=== PATIENT | female | born 1950 | race Two or more races ===

== ENCOUNTER 2020-02-15 09:01 | Day surgery (SDC) | payer MEDICARE, OTHER ==
[~2020-02-15] VITALS: Ht 170.2 cm; Wt 57.6 kg
[2020-02-15] VITALS (11 sets, daily range): BP systolic 87–124; BP diastolic 42–67
--- NOTE | 2020-02-15 09:22 | Anethesia Preoperative Eval ---
Anesthesia Pre-op PMH/ROS General Date of Evaluation: Feb 15, 2020 Time of Evaluation: 09:48 Anesthesiologist: faith ASA Score: ASA 2 Mallampati Score Class I : Soft palate, uvula, fauces, pillars visible Class II: Soft palate, uvula, fauces visible Class III: Soft palate, base of uvula visible Class IV: Only hard plate visible Mallampati Classification: Class II Surgeon: brendon Diagnosis: heme positive stool Surgical Procedure: colonoscopy Anesthesia History: none Social History: smoking - nonsmoker Family History: no anesthesia problems Allergies: Coded Allergies: No Known Allergies (Unverified , 02/15/20) Medications: see eMAR Patient NPO?: Yes Past Medical History Gastrointestinal/Genitourinary: Reports: other - heme positive stool HEENT: Reports: other - decreased visual acuity Anesthesia Pre-op Phys. Exam Physician Exam Last Vital Signs Date Time Temp Pulse Resp B/P (MAP) Pulse Ox O2 Delivery O2 Flow Rate FiO2 02/15/20 09:43 Room Air 02/15/20 09:37 97.9 63 18 105/56 99 Constitutional: NAD Neurologic: CN 2-12 intact Cardiovascular: RRR Respiratory: CTA Gastrointestinal: S/NT/ND Airway Exam Mallampati Score: Class II MO: limited Neck: flexible TMD: 2fb ROM: limited Anesthesia Pre-op A/P Risk Assessment & Plan Assessment: asa2 Plan: mac Status Change Before Surgery: No Pre-Antibiotics Drug: Carla Sarmiento MD Feb 15, 2020 09:22
[2020-02-15] MEDS ORDERED: LR 1000ml 1,000 ML IVLG SCH (09:48)
[2020-02-15] MEDS ORDERED: Atropine Inj 1mg/10ml Syr IV PRN (10:00)
[2020-02-15] MEDS ORDERED: DiphenhydrAMINE 50mg/ml Inj IVP PRN (10:00)
[2020-02-15] MEDS ORDERED: Midazolam 2mg/2ml Inj IVP PRN (10:00)
[2020-02-15] MEDS ORDERED: fentaNYL 100 mcg/2 mL IV PRN (10:00)
[2020-02-15] MEDS ORDERED: LR 1000ml ONE (11:00)
[2020-02-15] MEDS ORDERED: Propofol 200mg/20ml IV ONE (11:00)
[2020-02-15] MEDS ORDERED: Lidocaine 1% MPF 10mg/ml 5ml ONE (11:00)
--- NOTE | 2020-02-15 11:10 | Short Stay Surgery H&P ---
History of Present Illness History of Present Illness Chief Complaint see H&P HPI Ruby Winston is a 69 year old female who was admitted on for Blood In Stool Patient History Allergies: Coded Allergies: No Known Allergies (Unverified , 02/15/20) Medication History No Active Prescriptions or Reported Meds Physical Exam Vital Signs Last Vital Signs Date Time Temp Pulse Resp B/P (MAP) Pulse Ox O2 Delivery O2 Flow Rate FiO2 02/15/20 09:43 Room Air 02/15/20 09:37 97.9 63 18 105/56 99 Plan Attestation Are the patient's medical conditions optimized for surgery? Tanvi Hamilton MD Feb 15, 2020 11:10
--- NOTE | 2020-02-15 11:11 | Pre-Procedure Note/Attestation ---
Pre-Procedure Note/Attestation Complete Prior to Procedure Planned Procedure: not applicable Procedure Narrative: colon Indications for Procedure Pre-Operative Diagnosis: ob+ stools Attestation I attest that I discussed the nature of the procedure; its benefits; risks and complications; and alternatives (and the risks and benefits of such alternatives ), prior to the procedure, with the patient (or the patient's legal corporate representative). I attest that, if there was a reasonable possibility of needing a blood transfusion, the patient (or the patient's legal corporate representative) was given the [facility] standardized written summary, pursuant to the [place] Blood Safety Act ([place] Health and Safety Code # 1645, as amended). I attest that I re-evaluated the patient just prior to the surgery and that there has been no change in the patient's H&P, except as documented below: Tanvi Hamilton MD Feb 15, 2020 11:11
--- NOTE | 2020-02-15 12:24 | Immediate Post-Op Evaluation ---
Immediate Post-Op Evalulation Immediate Post-Op Evalulation Procedure: colonoscopy w/bx Date of Evaluation: Feb 15, 2020 Time of Evaluation: 12:16 IV Fluids: 1050ml lr Blood Products: none Estimated Blood Loss: negligible Blood Pressure Systolic: 92 Blood Pressure Diastolic: 46 Pulse Rate: 61 Respiratory Rate: 18 O2 Sat by Pulse Oximetry: 99 Temperature (Fahrenheit): 98.4 Pain Score (1-10): 0 Nausea: No Vomiting: No Complications none Patient Status: awake, reacts, patent Hydration Status: adequate Drug: Carla Sarmiento MD Feb 15, 2020 12:24
--- NOTE | 2020-02-15 12:25 | 48 Hour Post Anesthesia Eval ---
Post Anesthesia Evaluation Procedure: colonoscopy w/bx Date of Evaluation: Feb 15, 2020 Time of Evaluation: 12:18 Blood Pressure Systolic: 90 0: 44 Pulse Rate: 60 Respiratory Rate: 18 Temperature (Fahrenheit): 98.4 O2 Sat by Pulse Oximetry: 99 Airway: patent Nausea: No Vomiting: No Pain Intensity: 0 Hydration Status: adequate Cardiopulmonary Status: stable Mental Status/LOC: patient returned to baseline Post-Anesthesia Complications: none Follow-up care needed: N/A Carla Angulo MD Feb 15, 2020 12:25
--- NOTE | 2020-02-16 12:29 | Endoscopy Procedure Note ---
Endoscopy Procedure Note General Indication for Procedure: Heme (+) Procedures Performed: colonoscopy Operative Findings/Diagnosis: see dictation Pt Tolerated Procedure Well: Yes Estimated Blood Loss: none Anesthesia Anesthesiologist: Billy Stephen Anesthesia: MAC Medications Medication Given: see anesthesia record Inserted Devices Implant(s) used?: No GI Core Measures 50 yrs or older w/o bx or poly: Not Applicable 10yrs. F/U recommended: Not Applicable If not recommended, why?: Tanvi Hamilton MD Feb 16, 2020 12:29
--- NOTE | 2020-02-16 12:30 | Brief Operative Note ---
Immediate Post Operative Note Operative Note Chief Complaint: OB + Pre-op Diagnosis: ob+ stools Procedure: colon Post-op Diagnosis: see dictation Surgeon: brendon Anesthesia: moderate sedation Specimen: yes Complications: none Condition: stable Fluids: per record Implant(s) used?: No Tanvi Hamilton MD Feb 16, 2020 12:30
--- NOTE | 2020-02-17 00:15 | Operative Note - Dictated ---
GASTROENTEROLOGY PROCEDURE REPORT PROCEDURE: Colonoscopy with submucosal injection with hot snare polypectomy. SURGEON: Tanvi Hamilton MD ANESTHESIA: Please see the separate anesthesiologist notes for details. PRE-ENDOSCOPIC DIAGNOSIS: Heme-positive stools. POST-ENDOSCOPIC DIAGNOSES: 1. Normal terminal ileum for about 5 to 10 cm. 2. Occasional diverticulosis. 3. Diminutive polyp in the proximal transverse colon, status post hot snare polypectomy. 4. A 1 cm polyp, which is sessile in the proximal descending colon, status post submucosal injection of saline followed by snare polypectomy. 5. Diminutive polyps in the sigmoid colon x3, status post biopsy removal. 6. Two polyps in the rectum, one was removed with snare polypectomy and the other one with biopsy forceps, both place in the same bottle. 7. Diminutive distal rectal polyps x2, status post biopsy removal. DESCRIPTION OF PROCEDURE: The procedure, its risks, indications, alternatives, and possible complications were explained to the patient and informed consent was obtained. The patient was then sedated in the left lateral decubitus position and rectal exam was done. The colonoscope was then introduced into the rectum and advanced to about 5 to 10 cm into the terminal ileum. The colonoscope was then gradually withdrawn and the mucosa examined carefully. Examination of the colonic mucosa revealed polyps in the proximal transverse colon, proximal descending colon, sigmoid colon x3, proximal rectum x2, distal rectum x3, all of which were removed with a combination of biopsy forceps, hot snare polypectomy as well as the submucosal saline injection. All polyps were removed without any complications. The colonoscope was removed and the patient was sent to recovery in good condition. COMPLICATIONS: None. RECOMMENDATIONS: 1. Follow up biopsy results. 2. Outpatient followup. Tanvi Hamilton M.D. DR: Vanessa JOB#: [id number] CC:
== END 2020-02-15 13:35 | disposition home or self-care (01) ==
LOC: GAS 09:01
DX: K92.1 Melena (principal); K57.90 Diverticulosis of intestine, part unspecified, without perforation or abscess without bleeding; K62.5 Hemorrhage of anus and rectum; K62.1 Rectal polyp; D12.7 Benign neoplasm of rectosigmoid junction; D12.3 Benign neoplasm of transverse colon
CPT/HCPCS: 45380; 45381; 45384; J2704; J7120; 94003; 94150